=== PATIENT | male | born 1980 | race Caucasian/White ===

== ENCOUNTER 2017-09-20 20:37 | Emergency (ER) | payer BC, OTHER ==
[2017-09-20] MEDS ORDERED: Sodium Chloride 0.9% 10 ML Syringe FLUSH PRN (21:06)
[2017-09-20] MEDS ORDERED: Hyoscyamine 0.125 MG Tab.SL SL ONE (21:31)
[2017-09-20] MEDS ORDERED: Ketorolac 30 MG/ML SDV IVPUSH SCH (21:45)
--- NOTE | 2017-09-20 22:45 | EDM.PDOC ---
<Weston Hoang Jose Luis - Last Filed: 09/20/17 22:48> ED HPI GENERAL MEDICAL PROBLEM - General Chief Complaint: Abdominal Pain Stated Complaint: RIB PAIN Time Seen by Provider: 09/20/17 21:05 Source of Information: Reports: Patient, RN Notes Reviewed - History of Present Illness INITIAL COMMENTS - FREE TEXT/NARRATIVE: 36 year old male with intermitent abd pain for the past 5 days, worse the last 2 to 3 days, RUQ, pain had been relatively constant but worse today after grilled hamburger at work, I believe at the [employer] [place]. Hx of esophageal stricture, dilated about 2 yrs ago. Since than has a lot of heart burn, acid reflux but this pain is RUQ, radiates to his back, totally different. No nausea, vomiting or diarrhea. No chest pain or difficulty breathing. Treatments [employer]: Reports: Other (see below) Other Treatments [employer]: pepcid and protonix Right Abdomen Pain Score (Numeric/FACES): 10 - Related Data Allergies Allergy/AdvReac Type Severity Reaction Status Date / Time No Known Allergies Allergy Verified 09/20/17 20:49 Home Meds: Home Meds Pantoprazole Sodium [Protonix] 40 mg PO DAILY 09/20/17 [History] Acetaminophen/oxyCODONE [Percocet 325-5 MG] 1 each PO Q6H PRN #15 tab 09/21/17 [ Rx] Ondansetron HCl [Zofran] 4 mg PO Q8H PRN #12 ml 09/21/17 [Rx] Past Medical History Gastrointestinal History: Reports: Other (See Below) Other Gastrointestinal History: dilitation of esphagus - Past Surgical History HEENT Surgical History: Reports: Adenoidectomy, Tonsillectomy Social & Family History - Tobacco Use Smoking Status *Q: Never Smoker - Caffeine Use Caffeine Use: Reports: Soda - Recreational Drug Use Recreational Drug Use: No ED ROS GENERAL - Review of Systems Review Of Systems: See Below Constitutional: Denies: Fever, Chills, Diaphoresis HEENT: Reports: No Symptoms Respiratory: Denies: Shortness of Breath, Pleuritic Chest Pain Cardiovascular: Denies: Chest Pain GI/Abdominal: Reports: Abdominal Pain (RUQ), Decreased Appetite. Denies: Diarrhea, Nausea, Vomiting Musculoskeletal: Reports: Back Pain Skin: Reports: No Symptoms Neurological: Reports: No Symptoms ED EXAM, GI/ABD - Physical Exam Exam: See Below General Appearance: Alert, Moderate Distress Throat/Mouth: Normal Inspection, Normal Oropharynx Head: No: Facial Swelling Neck: Supple, Full Range of Motion Respiratory/Chest: No Respiratory Distress, Lungs Clear, Normal Breath Sounds Cardiovascular: Regular Rate, Rhythm GI/Abdominal Exam: Soft, Tender (RUQ, Pos Lambert's sign, remainder of abd nontender). No: Guarding, Rebound Back Exam: No: CVA Tenderness (L), CVA Tenderness (R) Extremities: Normal Inspection, Normal Range of Motion Neurological: Alert, No Motor/Sensory Deficits Skin Exam: Warm, Dry, Normal Color, No Rash Course - Vital Signs Last Recorded V/S: Last Vital Signs Temp 98.6 F 09/20/17 20:48 Pulse 70 09/20/17 20:48 Resp 20 09/20/17 20:48 BP 156/96 H 09/20/17 20:48 Pulse Ox 98 09/20/17 20:48 - Orders/Labs/Meds Orders: Active Orders 24 hr Category Date Time Status Peripheral IV Care [RC] . DIRECTED Care 09/20/17 21:07 Active Abdomen Ltd [US] Stat Exams 09/20/17 22:39 Taken Ketorolac [Toradol] Med 09/20/17 21:45 Active 30 mg IVPUSH ONETIME Sodium Chloride 0.9% [Saline Flush] Med 09/20/17 21:06 Active 10 ml FLUSH ASDIRECTED PRN Peripheral IV Insertion Adult [OM.PC] Stat Oth 09/20/17 21:07 Ordered Medication Orders Ketorolac Tromethamine (Toradol) 30 mg IVPUSH ONETIME [facility] Last Admin: 09/20/17 21:37 Dose: 30 mg Sodium Chloride (Saline Flush) 10 ml FLUSH ASDIRECTED PRN PRN Reason: Keep Vein Open Last Admin: 09/20/17 21:37 Dose: 10 ml Labs: Laboratory Tests 09/20/17 09/20/17 09/20/17 Range/Units 21:00 21:00 21:00 WBC 11.11 H (4.23-9.07) K/mm3 RBC 5.28 (4.63-6.08) M/mm3 Hgb 16.0 (13.7-17.5) gm/L Hct 46.8 (40.1-51.0) % MCV 88.6 (79.0-92.2) fl MCH 30.3 (25.7-32.2) pg MCHC 34.2 (32.2-35.5) g/dl RDW Std Deviation 42.8 (35.1-43.9) fL Plt Count 210 (163-337) K/mm3 MPV 10.5 (9.4-12.3) fl Neut % (Auto) 77.2 H (34.0-67.9) % Lymph % (Auto) 9.7 L (21.8-53.1) % Ocean % (Auto) 9.7 (5.3-12.2) % Eos % (Auto) 2.8 (0.8-7.0) Baso % (Auto) 0.4 (0.1-1.2) % Neut # (Auto) 8.58 H (1.78-5.38) K/mm3 Lymph # (Auto) 1.08 L (1.32-3.57) K/mm3 Ocean # (Auto) 1.08 H (0.30-0.82) K/mm3 Eos # (Auto) 0.31 (0.04-0.54) K/mm3 Baso # (Auto) 0.04 (0.01-0.08) K/mm3 Manual Slide Review Normal smear Sodium 142 (136-145) mEq/L Potassium 3.6 (3.5-5.1) mEq/L Chloride 103 (98-107) mEq/L Carbon Dioxide 29 (21-32) mEq/L Anion Gap 13.6 (5-15) BUN 8 (7-18) mg/dL Creatinine 1.4 H (0.7-1.3) mg/dL Est Cr Clr Drug Dosing 68.20 mL/min Estimated GFR (MDRD) 57 (>60) mL/min BUN/Creatinine Ratio 5.7 L (14-18) Glucose 149 H (74-106) mg/dL Calcium 9.0 (8.5-10.1) mg/dL Total Bilirubin 1.7 H (0.2-1.0) mg/dL GGT 152 H (15-85) U/L AST 28 (15-37) U/L ALT 66 H (16-63) U/L Alkaline Phosphatase 78 (46-116) U/L Total Protein 7.8 (6.4-8.2) g/dl Albumin 3.9 (3.4-5.0) g/dl Globulin 3.9 gm/dL Albumin/Globulin Ratio 1.0 (1-2) Lipase 125 (73-393) U/L Meds: Medications Generic Name Dose Route Start Last Admin Trade Name Freq PRN Reason Stop Dose Admin Ketorolac Tromethamine 30 mg 09/20/17 21:45 09/20/17 21:37 Toradol IVPUSH 30 mg ONETIME ERA Administration Sodium Chloride 10 ml 09/20/17 21:06 09/20/17 21:37 Saline Flush FLUSH 10 ml ASDIRECTED PRN Administration Keep Vein Open Discontinued Medications Generic Name Dose Route Start Last Admin Trade Name Freq PRN Reason Stop Dose Admin Hydromorphone HCl 0.5 mg 09/20/17 22:46 09/20/17 22:53 Dilaudid IVPUSH 09/20/17 22:47 0.5 mg ONETIME ONE Administration Hydromorphone HCl 0.5 mg 09/21/17 00:11 09/21/17 00:17 Dilaudid IVPUSH 09/21/17 00:12 0.5 mg ONETIME ONE Administration Hyoscyamine 0.125 mg 09/20/17 21:31 09/20/17 21:37 Hyomax-Sl SL 09/20/17 21:32 0.125 mg ONETIME ONE Administration - Re-Assessments/Exams Free Text/Narrative Re-Assessment/Exam: 09/20/17 22:54 WBC, ALT, bili, GGT all mildly elevated. Will get abd US. He was in significant pain on arrival to ED and at time of my exam, very mild relief of pain with Levsin SQ, torodol IV. Still rating the pain at an "8". Will give dilaudid 0.5 mg IV. Will keep NPO for now. End of shift. Will transfer care to Dr Power. Departure - Departure Disposition: Home, Self-Care 01 Clinical Impression: Cholelithiasis without cholecystitis, Right upper quadrant pain Cholelithiasis Qualifiers: Cholelithiasis location: gallbladder Cholecystitis presence: without cholecystitis Biliary obstruction: without biliary obstruction Qualified Code(s) : K80.20 - Calculus of gallbladder without cholecystitis without obstruction - Discharge Information Prescriptions: Acetaminophen/oxyCODONE [Percocet 325-5 MG] 1 each PO Q6H PRN #15 tab PRN Reason: Pain Ondansetron HCl [Zofran] 4 mg PO Q8H PRN #12 ml PRN Reason: Nausea Instructions: Cholelithiasis Referrals: Markus Hill MD [Physician] - Forms: ED Department Discharge, ED Return to Work/School Form Additional Instructions: Need to avoid all oily, greasy or fried foods, stay on liquids only for the next 24 hours, take the medicine for pain and nausea as needed, if the pain becomes unbearable you just have to return to the ER over the weekend, follow up with Dr. Mosley on Friday by calling his office and hopefully being seen that day, return to the ER if needed <Dustin Power - Last Filed: 09/21/17 00:51> Course - Re-Assessments/Exams Free Text/Narrative Re-Assessment/Exam: 09/20/17 23:09 I took over the care for Dr. Ge of this patient. I agree with his physical exam and assessment, lab work and testing. We are waiting for the ultrasound to be done and will provide medication for his pain relief. 09/21/17 00:46 I spoke with the patient indicating that the ultrasound was positive for sludge and gallstones and that he is going to need to get his gallbladder taken out. I did speak to the surgeon that was sanitation worker cleaning equipment and she felt that he didn't need to have the gallbladder out immediately since he was afebrile and his white count was not markedly elevated and they did not see any intrahepatic bile duct dilatation or cholecystitis picture. I will refer him to Dr. Mosley for evaluation and treatment of his gallbladder. Departure - Departure Time of Disposition: 00:47 Condition: Fair
[2017-09-20] MEDS ORDERED: HYDROmorphone 0.5 MG/0.5 ML SYRINGE IVPUSH ONE (22:46)
[2017-09-21] MEDS ORDERED: HYDROmorphone 0.5 MG/0.5 ML SYRINGE IVPUSH ONE (00:11)
--- NOTE | 2017-09-22 07:59 | US ---
Limited abdominal ultrasound: Multiple real-time images of the upper right abdomen were obtained. Comparison: No prior abdominal study. Findings: Visualized portions of the pancreas appear within normal limits. Gallbladder is filled with sludge as well as several shadowing gallstones. Gallbladder wall shows slight wall thickening. No pericholecystic fluid is seen. Common bile duct measures within normal limits. Echogenic liver is seen which is likely due to fatty infiltration. Hypoechoic area is noted near the junction of the right and left lobes which is felt compatible with focal fatty sparing. 2.7 cm liver cyst is identified next to the gallbladder. Portal vein shows normal hepatopedal flow. Right kidney shows no hydronephrosis or mass and has a length of 9.9 cm. Impression: 1. Gallbladder filled with sludge as well as containing several gallstones. 2. Fatty infiltration within the liver with area of focal fatty sparing. 3. Incidental liver cyst. Diagnostic code #3 I agree with preliminary report from [facility], finalized at 09/21/17, 1:20 AM Central Time
== END 2017-09-21 01:01 | disposition home or self-care (01) ==
LOC: JD.ED 20:37 → SUPCPDRO 20:37 → JD.ED 09-21 01:01
DX: K80.20 Calculus of gallbladder without cholecystitis without obstruction (principal); Z98.890 Other specified postprocedural states; Z79.899 Other long term (current) drug therapy
CPT/HCPCS: 36415; 76705; 80053; 82977; 83690; 85025; 96374; 96375; 96376; 99284; A9270; J1170; J1885; J7050

== ENCOUNTER 2017-09-26 10:03 | Inpatient (IN) | payer OTHER ==
[~2017-09-26 10:03] MED LIST: Bupivacaine 0.5% 30 ML SDV ONE; Dexamethasone 4 MG/ML SDV ONE; HYDROmorphone 1 MG/ML Syringe ONE; Iopamidol 612 MG/ML 50 ML SDV ONE; Ketorolac 30 MG/ML SDV ONE; Lactated Ringers 1,000 ML ONE; Lidocaine 1% 4 ML ONE; Midazolam 1 MG/ML 2 ML SDV ONE; Ondansetron 4 MG/2 ML SDV ONE; Propofol 200 MG/20 ML SDV ONE; Rocuronium 50 MG/5 ML Vial ONE; Sodium Chloride 0.9% 50 ML SDV ONE; ceFAZolin 1 GM Vial ONE; fentaNYL 250 MCG/5 ML SDV ONE
--- NOTE | 2017-09-26 10:23 | PCM.PREANE ---
Preanesthetic Assessment - Anesthesia/Transfusion/Family Hx Anesthesia History: Prior Anesthesia Without Reaction Family History of Anesthesia Reaction: No Transfusion History: No Prior Transfusion(s) Intubation History: Unknown - Review of Systems General: No Symptoms Pulmonary: No Symptoms (quit smoking: history of 1/4 pack times 0.5 years/quit smoking 15 years ago./ETOH: 2-4 drinks/week) Cardiovascular: No Symptoms Gastrointestinal: No Symptoms (GERD/esophageal stricture noted in the past.) Neurological: No Symptoms Other: Reports: None - Physical Assessment NPO Status Date: 09/25/17 NPO Status Time: 22:00 Pulse: 84 O2 Sat by Pulse Oximetry: 96 Respiratory Rate: 20 Blood Pressure: 134/94 Temperature: 36.4 C Height: 1.7 m Weight: 73 kg ASA Class: 1 Mental Status: Alert & Oriented x3 Airway Class: Mallampati = 2 Dentition: Reports: Normal Dentition, Caries Thyro-Mental Finger Breadths: 3 Mouth Opening Finger Breadths: 3 ROM/Head Extension: Full Lungs: Clear to Auscultation, Normal Respiratory Effort Cardiovascular: Regular Rate, Regular Rhythm, No Murmurs - Allergies Allergies/Adverse Reactions: Allergies Allergy/AdvReac Type Severity Reaction Status Date / Time No Known Allergies Allergy Verified 09/20/17 20:49 - Anesthesia Plan Pre-Op Medication Ordered: None - Acknowledgements Anesthesia Type Planned: General Anesthesia Pt an Appropriate Candidate for the Planned Anesthesia: Yes Alternatives and Risks of Anesthesia Discussed w Pt/Guardian: Yes Pt/Guardian Understands and Agrees with Anesthesia Plan: Yes PreAnesthesia Questionnaire Gastrointestinal History: Reports: Other (See Below) Other Gastrointestinal History: dilitation of esphagus - Past Surgical History HEENT Surgical History: Reports: Adenoidectomy, Tonsillectomy - SUBSTANCE USE Smoking Status *Q: Never Smoker Recreational Drug Use History: No - HOME MEDS Home Medications: Home Meds Pantoprazole Sodium [Protonix] 40 mg PO DAILY 09/20/17 [History] Acetaminophen/oxyCODONE [Percocet 325-5 MG] 1 each PO Q6H PRN #15 tab 09/21/17 [ Rx] Ondansetron HCl [Zofran] 4 mg PO Q8H PRN #12 ml 09/21/17 [Rx] - CURRENT (IN HOUSE) MEDS Current Meds: Current Medications Discontinued Medications Bupivacaine HCl (Marcaine 0.5%) Confirm Administered Dose 30 ml .ROUTE .[facility]-MED ONE Stop: 09/26/17 10:02 Cefazolin Sodium (Ancef) Confirm Administered Dose 2 gm .ROUTE .[facility]-MED ONE Stop: 09/26/17 07:12 Dexamethasone (Dexamethasone) Confirm Administered Dose 8 mg .ROUTE .ST-MED ONE Stop: 09/26/17 07:12 Fentanyl (Sublimaze) Confirm Administered Dose 250 mcg .ROUTE .ST-MED ONE Stop: 09/26/17 07:14 Hydromorphone HCl (Dilaudid) Confirm Administered Dose 1 mg .ROUTE .[facility]-MED ONE Stop: 09/26/17 07:12 Lidocaine HCl (Xylocaine-Mpf 1%) Confirm Administered Dose 4 mls @ as directed .ROUTE .[facility]-MED ONE Stop: 09/26/17 07:12 Lactated Ringer's (Ringers, Lactated) Confirm Administered Dose 1,000 mls @ as directed .ROUTE .[facility] ONE Stop: 09/26/17 07:12 Iopamidol (Isovue-300 (61%)) Confirm Administered Dose 50 ml .ROUTE .[facility]-MED ONE Stop: 09/26/17 10:01 Ketorolac Tromethamine (Toradol) Confirm Administered Dose 30 mg .ROUTE .[facility]- MED ONE Stop: 09/26/17 07:12 Midazolam HCl (Versed 1 Mg/Ml) Confirm Administered Dose 2 mg .ROUTE .ST-MED ONE Stop: 09/26/17 07:13 Ondansetron HCl (Zofran) Confirm Administered Dose 4 mg .ROUTE .ST-MED ONE Stop: 09/26/17 07:12 Propofol (Diprivan 20 Ml) Confirm Administered Dose 200 mg .ROUTE .[facility]-MED ONE Stop: 09/26/17 07:13 Rocuronium [place] (Zemuron) Confirm Administered Dose 50 mg .ROUTE .ST-MED ONE Stop: 09/26/17 07:12 Sodium Chloride (Normal Saline) Confirm Administered Dose 50 ml .ROUTE .[facility]-MED ONE Stop: 09/26/17 10:02
[2017-09-26] MEDS ORDERED: Meperidine PF 50 MG/ML Syringe IVPUSH PRN (11:02)
[2017-09-26] MEDS ORDERED: fentaNYL 100 MCG/2 ML SDV IVPUSH PRN (11:02)
[2017-09-26] MEDS ORDERED: Ondansetron 4 MG/2 ML SDV IVPUSH PRN ×2 (11:02→12:41)
[2017-09-26] MEDS ORDERED: ePHEDrine 50 MG/ML SDV IVPUSH PRN (11:02)
[2017-09-26] MEDS ORDERED: diphenhydrAMINE 50 MG/ML SDV IVPUSH PRN (11:02)
[2017-09-26] MEDS ORDERED: HYDROmorphone 1 MG/ML Syringe ONE (11:06)
[2017-09-26] MEDS ORDERED: Phenylephrine 1 MG in Sodium Chloride 0.9% 10 ML IV SCH (11:15)
[2017-09-26] MEDS ORDERED: fentaNYL 100 MCG/2 ML SDV ONE (11:26)
[2017-09-26] MEDS ORDERED: Sodium Chloride 0.9% 10 ML Syringe FLUSH PRN (11:31)
[2017-09-26] MEDS ORDERED: Lidocaine 1%/Sod Bicarbonate in NS 8.4% 1 ML Syringe IDERM PRN (11:31)
[2017-09-26] MEDS ORDERED: Lactated Ringers 1,000 ML IV SCH (11:45)
--- NOTE | 2017-09-26 12:39 | PCM.OPNOTE ---
- General Post-Op/Procedure Note Date of Surgery/Procedure: 09/26/17 Operative Procedure(s): laproscopy open cholecystectomy Findings: cholelithiasis. acute cholecystitis Pre Op Diagnosis: cholelithiasis/acute cholecystitis Post-Op Diagnosis: Same Anesthesia Technique: General ET Tube Primary Surgeon: Markus Hill EBL in mLs: 100 Complications: None Condition: Good
--- NOTE | 2017-09-26 12:46 | PCM.POSTAN ---
POST ANESTHESIA ASSESSMENT - MENTAL STATUS Mental Status: Alert - VITAL SIGNS Pulse Rate: 78 SaO2: 96 Resp Rate: 16 Blood Pressure: 159/90 Temperature: 37.4 C - RESPIRATORY Respiratory Status: Respiratory Rate WNL, Airway Patent, O2 Saturation Stable, Supplemental Oxygen - CARDIOVASCULAR CV Status: Pulse Rate WNL, Blood Pressure Stable - GASTROINTESTINAL GI Status: No Symptoms - POST OP HYDRATION Hydration Status: Adequate & Stable
[2017-09-26] MEDS ORDERED: HYDROmorphone 0.5 MG/0.5 ML Syringe ONE ×2 (12:54→13:17)
[2017-09-26] MEDS ORDERED: HYDROmorphone 0.5 MG/0.5 ML Syringe IVPUSH ONE (13:01)
[2017-09-26] MEDS ORDERED: HYDROmorphone 0.5 MG/0.5 ML Syringe IVPUSH PRN (13:15)
[2017-09-26] MEDS: Ampicillin/Sulbactam Na 3 GM in Sodium Chloride 0.9% 100 ML IV SCH ×2 (14:33→20:19)
[2017-09-26] MEDS: Ketorolac 30 MG/ML SDV IVPUSH PRN ×2 (15:50→22:36)
[2017-09-26] MEDS: Lactated Ringers 1,000 ML IV SCH (15:53)
[2017-09-26] MEDS: HYDROmorphone 0.5 MG/0.5 ML SYRINGE IVPUSH PRN ×2 (20:12→22:46)
[2017-09-27] MEDS: Lactated Ringers 1,000 ML IV SCH ×2 (01:16→11:55)
[2017-09-27] MEDS: Ampicillin/Sulbactam Na 3 GM in Sodium Chloride 0.9% 100 ML IV SCH ×4 (02:08→19:48)
[2017-09-27] MEDS: HYDROmorphone 0.5 MG/0.5 ML SYRINGE IVPUSH PRN (03:43)
[2017-09-27] MEDS: Ketorolac 30 MG/ML SDV IVPUSH PRN ×3 (04:41→18:18)
--- NOTE | 2017-09-27 11:58 | PCM.SURGPN ---
- General Info Date of Service: 09/27/17 POD#: 1 Functional Status: Reports: Pain Controlled - Review of Systems General: Reports: No Symptoms Pulmonary: Reports: No Symptoms Cardiovascular: Reports: No Symptoms Gastrointestinal: Reports: No Symptoms - Patient Data Vitals - Most Recent: Last Vital Signs Temp 98.8 F 09/27/17 08:06 Pulse 68 09/27/17 08:06 Resp 18 09/27/17 08:06 BP 122/73 09/27/17 08:06 Pulse Ox 96 09/27/17 08:06 Weight - Most Recent: 76.612 kg I&O - Last 24 Hours: Intake & Output 09/26/17 09/27/17 09/27/17 23:59 07:59 15:59 Intake Total 871 1800 1645 Output Total 750 Balance 871 1050 1645 Med Orders - Current: Current Medications Hydromorphone HCl (Dilaudid) 1 mg IVPUSH Q1H PRN PRN Reason: Pain Last Admin: 09/27/17 03:43 Dose: 1 mg Ampicillin Sodium/Sulbactam (Sodium 3 gm/ Sodium Chloride) 100 mls @ 200 mls/ hr IV Q6H [facility] Last Admin: 09/27/17 07:59 Dose: 200 mls/hr Lactated Ringer's (Ringers, Lactated) 1,000 mls @ 70 mls/hr IV ASDIRECTED [facility] Last Admin: 09/27/17 11:55 Dose: 70 mls/hr Ketorolac Tromethamine (Toradol) 30 mg IVPUSH Q6H PRN PRN Reason: Pain Last Admin: 09/27/17 10:29 Dose: 30 mg Ondansetron HCl (Zofran) 4 mg IVPUSH Q8H PRN PRN Reason: Nausea Oxycodone/Acetaminophen (Percocet 325-5 Mg) 1 tab PO Q6H PRN PRN Reason: Pain Discontinued Medications Bupivacaine HCl (Marcaine 0.5%) Confirm Administered Dose 30 ml .ROUTE .STK-MED ONE Stop: 09/26/17 10:02 Last Admin: 09/26/17 10:57 Dose: 8 ml Cefazolin Sodium (Ancef) Confirm Administered Dose 2 gm .ROUTE .STK-MED ONE Stop: 09/26/17 07:12 Dexamethasone (Dexamethasone) Confirm Administered Dose 8 mg .ROUTE .STK-MED ONE Stop: 09/26/17 07:12 Diphenhydramine HCl (Benadryl) 25 mg IVPUSH Q6H PRN PRN Reason: pruritis Stop: 09/26/17 16:00 Ephedrine Sulfate (Ephedrine Sulfate) 5 mg IVPUSH ASDIRECTED PRN PRN Reason: Hypotension Stop: 09/26/17 16:00 Fentanyl (Sublimaze) Confirm Administered Dose 250 mcg .ROUTE .STK-MED ONE Stop: 09/26/17 07:14 Fentanyl (Sublimaze) 50 mcg IVPUSH Q5M PRN PRN Reason: Pain Stop: 09/26/17 11:03 Fentanyl (Sublimaze) Confirm Administered Dose 100 mcg .ROUTE .STK-MED ONE Stop: 09/26/17 11:27 Hydromorphone HCl (Dilaudid) Confirm Administered Dose 1 mg .ROUTE .STK-MED ONE Stop: 09/26/17 07:12 Hydromorphone HCl (Dilaudid) Confirm Administered Dose 1 mg .ROUTE .STK-MED ONE Stop: 09/26/17 11:07 Hydromorphone HCl (Dilaudid) 1 mg IVPUSH ONETIME ONE Stop: 09/26/17 13:02 Last Admin: 09/26/17 14:57 Dose: Not Given Hydromorphone HCl (Dilaudid) Confirm Administered Dose 0.5 mg .ROUTE .STK-MED ONE Stop: 09/26/17 12:55 Last Admin: 09/26/17 13:00 Dose: 0.5 mg Hydromorphone HCl (Dilaudid) Confirm Administered Dose 0.5 mg .ROUTE .STK-MED ONE Stop: 09/26/17 13:18 Last Admin: 09/26/17 14:57 Dose: Not Given Hydromorphone HCl (Dilaudid) 0.5 mg IVPUSH ONETIME PRN PRN Reason: Pain (severe 7-10) Stop: 09/26/17 15:00 Last Admin: 09/26/17 13:30 Dose: 0.5 mg Lidocaine HCl (Xylocaine-Mpf 1%) Confirm Administered Dose 4 mls @ as directed .ROUTE .STK-MED ONE Stop: 09/26/17 07:12 Lactated Ringer's (Ringers, Lactated) Confirm Administered Dose 1,000 mls @ as directed .ROUTE .STK-MED ONE Stop: 09/26/17 07:12 Phenylephrine HCl 1 mg/ Sodium (Chloride) 10.1 mls @ 1 mls/sec IV TITRATE ERA PRN Reason: Protocol Stop: 09/26/17 16:00 Lactated Ringer's (Ringers, Lactated) 1,000 mls @ 125 mls/hr IV ASDIRECTED [facility] Stop: 09/26/17 23:00 Last Admin: 09/26/17 10:25 Dose: 125 mls/hr Lactated Ringer's (Ringers, Lactated) 1,000 mls @ 125 mls/hr IV ASDIRECTED [facility] Last Admin: 09/27/17 01:16 Dose: 125 mls/hr Iopamidol (Isovue-300 (61%)) Confirm Administered Dose 50 ml .ROUTE .STK-MED ONE Stop: 09/26/17 10:01 Ketorolac Tromethamine (Toradol) Confirm Administered Dose 30 mg .ROUTE .STK- MED ONE Stop: 09/26/17 07:12 Lidocaine/Sodium Bicarbonate (Buffered Lidocaine 1% In Ns 8.4%) 0.25 ml IDERM ONETIME PRN PRN Reason: Prior to IV Start Stop: 09/26/17 18:00 Last Admin: 09/26/17 10:24 Dose: 0.25 ml Meperidine HCl (Demerol) 12.5 mg IVPUSH ONETIME PRN PRN Reason: shivering Stop: 09/26/17 16:00 Midazolam HCl (Versed 1 Mg/Ml) Confirm Administered Dose 2 mg .ROUTE .STK-MED ONE Stop: 09/26/17 07:13 Ondansetron HCl (Zofran) Confirm Administered Dose 4 mg .ROUTE .STK-MED ONE Stop: 09/26/17 07:12 Ondansetron HCl (Zofran) 4 mg IVPUSH ONETIME PRN PRN Reason: Nausea/Vomiting Stop: 09/26/17 16:00 Propofol (Diprivan 20 Ml) Confirm Administered Dose 200 mg .ROUTE .STK-MED ONE Stop: 09/26/17 07:13 Rocuronium [place] (Zemuron) Confirm Administered Dose 50 mg .ROUTE .STK-MED ONE Stop: 09/26/17 07:12 Sodium Chloride (Normal Saline) Confirm Administered Dose 50 ml .ROUTE .STK-MED ONE Stop: 09/26/17 10:02 Sodium Chloride (Saline Flush) 10 ml FLUSH ASDIRECTED PRN PRN Reason: Keep Vein Open Stop: 09/26/17 18:00 - Exam Wound/Incisions: Healing Well Lungs: Clear to Auscultation, Normal Respiratory Effort Cardiovascular: Regular Rate, Regular Rhythm GI/Abdominal Exam: Normal Bowel Sounds, Soft, Non-Tender, No Organomegaly, No Distention, No Abnormal Bruit, No Mass, Pelvis Stable - Problem List Review Problem List Initiated/Reviewed/Updated: Yes - My Orders Last 24 Hours: Active Orders 24 hr Category Date Time Status Ambulate [RC] ASDIRECTED Care 09/26/17 12:39 Active Antiembolic Devices [RC] QSHIFT Care 09/26/17 12:41 Active Communication Order [RC] ASDIRECTED Care 09/27/17 11:47 Active Cooling Warming Measures [RC] ASDIRECTED Care 09/26/17 11:01 Active Incentive Spirometry [RT Incentive Spirometry] [RC] Care 09/26/17 12:40 Active ASDIRECTED Notify Provider [RC] ASDIRECTED Care 09/26/17 11:01 Active Oxygen Therapy [RC] ASDIRECTED Care 09/26/17 11:01 Active Pulse Oximetry [RC] ASDIRECTED Care 09/26/17 11:01 Active Turn, Cough, Deep Breathe [RC] .PRN Care 09/26/17 12:40 Active Clear Liquid Diet [DIET] Diet 09/26/17 Dinner Active CBC WITH AUTO DIFF [HEME] Routine Lab 09/28/17 07:00 Ordered COMPREHENSIVE METABOLIC PN,CMP [CHEM] Routine Lab 09/28/17 07:00 Ordered Acetaminophen/oxyCODONE [Percocet 325-5 MG] Med 09/27/17 11:38 Active 1 tab PO Q6H PRN Ampicillin/Sulbactam Na [Unasyn] 3 gm Med 09/26/17 14:00 Active Sodium Chloride 0.9% [Normal Saline] 100 ml IV Q6H HYDROmorphone [Dilaudid] Med 09/26/17 12:42 Active 1 mg IVPUSH Q1H PRN Ketorolac [Toradol] Med 09/26/17 12:42 Active 30 mg IVPUSH Q6H PRN Lactated Ringers [Ringers, Lactated] 1,000 ml Med 09/27/17 11:45 Active IV ASDIRECTED Ondansetron [Zofran] Med 09/26/17 12:41 Active 4 mg IVPUSH Q8H PRN Peripheral IV Insertion Adult [OM.PC] Routine Oth 09/26/17 11:31 Ordered SCD [Sequential Compression Device] [OM.PC] Routine Oth 09/26/17 12:41 Ordered Resuscitation Status Routine Resus Stat 09/26/17 16:57 Ordered Medication Orders Hydromorphone HCl (Dilaudid) 1 mg IVPUSH Q1H PRN PRN Reason: Pain Last Admin: 09/27/17 03:43 Dose: 1 mg Admin: 09/26/17 22:46 Dose: 1 mg Admin: 09/26/17 20:12 Dose: 1 mg Ampicillin Sodium/Sulbactam (Sodium 3 gm/ Sodium Chloride) 100 mls @ 200 mls/ hr IV Q6H [facility] Last Admin: 09/27/17 07:59 Dose: 200 mls/hr Infusion: 09/27/17 02:38 Dose: 200 mls/hr Admin: 09/27/17 02:08 Dose: 200 mls/hr Infusion: 09/26/17 20:49 Dose: 200 mls/hr Admin: 09/26/17 20:19 Dose: 200 mls/hr Infusion: 09/26/17 15:03 Dose: 200 mls/hr Admin: 09/26/17 14:33 Dose: 200 mls/hr Lactated Ringer's (Ringers, Lactated) 1,000 mls @ 70 mls/hr IV ASDIRECTED [facility] Last Admin: 09/27/17 11:55 Dose: 70 mls/hr Ketorolac Tromethamine (Toradol) 30 mg IVPUSH Q6H PRN PRN Reason: Pain Last Admin: 09/27/17 10:29 Dose: 30 mg Admin: 09/27/17 04:41 Dose: 30 mg Admin: 09/26/17 22:36 Dose: 30 mg Admin: 09/26/17 15:50 Dose: 30 mg Ondansetron HCl (Zofran) 4 mg IVPUSH Q8H PRN PRN Reason: Nausea Oxycodone/Acetaminophen (Percocet 325-5 Mg) 1 tab PO Q6H PRN PRN Reason: Pain - Plan Plan (Free Text/Narrative):: doing well continue with present teatment pt is tlerating diet and have flatus JMB
[2017-09-27] MEDS ORDERED: Aluminum Hydroxide/Magnesium Hydroxide/Simethicone Susp 30 ML Cup PO PRN (12:55)
[2017-09-27] MEDS: Acetaminophen/oxyCODONE 325-5 MG Tab PO PRN ×2 (13:18→21:38)
[2017-09-28] MEDS: Ampicillin/Sulbactam Na 3 GM in Sodium Chloride 0.9% 100 ML IV SCH ×4 (02:23→20:35)
[2017-09-28] MEDS: Ketorolac 30 MG/ML SDV IVPUSH PRN ×3 (02:27→23:17)
[2017-09-28] MEDS: Lactated Ringers 1,000 ML IV SCH (03:03)
[2017-09-28] MEDS: Acetaminophen/oxyCODONE 325-5 MG Tab PO PRN ×2 (08:32→20:35)
[2017-09-28] MEDS ORDERED: Sodium Chloride 0.9% 10 ML Syringe FLUSH PRN (12:50)
--- NOTE | 2017-09-28 12:52 | PCM.SURGPN ---
- General Info Date of Service: 09/28/17 POD#: 2 Functional Status: Reports: Pain Controlled - Review of Systems General: Reports: No Symptoms Pulmonary: Reports: No Symptoms Cardiovascular: Reports: No Symptoms Gastrointestinal: Reports: No Symptoms - Patient Data Vitals - Most Recent: Last Vital Signs Temp 98.8 F 09/28/17 07:54 Pulse 76 09/28/17 07:54 Resp 16 09/28/17 07:54 BP 125/78 09/28/17 07:54 Pulse Ox 95 09/28/17 07:54 Weight - Most Recent: 77.61 kg I&O - Last 24 Hours: Intake & Output 09/27/17 09/28/17 09/28/17 23:59 07:59 15:59 Intake Total 1871 1713 Output Total 1985 950 Balance -114 763 Lab Results Last 24 Hrs: Laboratory Results - last 24 hr 09/28/17 09/28/17 Range/Units 05:05 05:05 WBC 5.67 (4.23-9.07) K/mm3 RBC 4.03 L (4.63-6.08) M/mm3 Hgb 12.1 L (13.7-17.5) gm/L Hct 36.2 L (40.1-51.0) % MCV 89.8 (79.0-92.2) fl MCH 30.0 (25.7-32.2) pg MCHC 33.4 (32.2-35.5) g/dl RDW Std Deviation 41.8 (35.1-43.9) fL Plt Count 277 (163-337) K/mm3 MPV 9.8 (9.4-12.3) fl Neut % (Auto) 61.0 (34.0-67.9) % Lymph % (Auto) 23.1 (21.8-53.1) % [place] % (Auto) 9.2 (5.3-12.2) % Eos % (Auto) 5.3 (0.8-7.0) Baso % (Auto) 0.5 (0.1-1.2) % Neut # (Auto) 3.46 (1.78-5.38) K/mm3 Lymph # (Auto) 1.31 L (1.32-3.57) K/mm3 [place] # (Auto) 0.52 (0.30-0.82) K/mm3 Eos # (Auto) 0.30 (0.04-0.54) K/mm3 Baso # (Auto) 0.03 (0.01-0.08) K/mm3 Sodium 142 (136-145) mEq/L Potassium 3.1 L (3.5-5.1) mEq/L Chloride 107 (98-107) mEq/L Carbon Dioxide 28 (21-32) mEq/L Anion Gap 10.1 (5-15) BUN 7 (7-18) mg/dL Creatinine 0.9 (0.7-1.3) mg/dL Est Cr Clr Drug Dosing 106.09 mL/min Estimated GFR (MDRD) > 60 (>60) mL/min BUN/Creatinine Ratio 7.8 L (14-18) Glucose 92 (74-106) mg/dL Calcium 7.7 L (8.5-10.1) mg/dL Total Bilirubin 0.6 (0.2-1.0) mg/dL AST 56 H (15-37) U/L ALT 112 H (16-63) U/L Alkaline Phosphatase 119 H (46-116) U/L Total Protein 5.5 L (6.4-8.2) g/dl Albumin 2.5 L (3.4-5.0) g/dl Globulin 3.0 gm/dL Albumin/Globulin Ratio 0.8 L (1-2) Med Orders - Current: Current Medications Al Hydroxide/Mg Hydroxide (Mag-Al Plus) 30 ml PO Q4H PRN PRN Reason: Heartburn Last Admin: 09/27/17 13:01 Dose: 30 ml Hydromorphone HCl (Dilaudid) 1 mg IVPUSH Q1H PRN PRN Reason: Pain Last Admin: 09/27/17 03:43 Dose: 1 mg Ampicillin Sodium/Sulbactam (Sodium 3 gm/ Sodium Chloride) 100 mls @ 200 mls/ hr IV Q6H ERA Last Admin: 09/28/17 08:32 Dose: 200 mls/hr Lactated Ringer's (Ringers, Lactated) 1,000 mls @ 70 mls/hr IV ASDIRECTED ERA Last Admin: 09/28/17 03:03 Dose: 70 mls/hr Ketorolac Tromethamine (Toradol) 30 mg IVPUSH Q6H PRN PRN Reason: Pain Last Admin: 09/28/17 02:27 Dose: 30 mg Ondansetron HCl (Zofran) 4 mg IVPUSH Q8H PRN PRN Reason: Nausea Oxycodone/Acetaminophen (Percocet 325-5 Mg) 1 tab PO Q6H PRN PRN Reason: Pain Last Admin: 09/28/17 08:32 Dose: 1 tab Potassium Chloride (Klor-Con 10) 10 meq PO BID ERA Stop: 09/29/17 21:01 Sodium Chloride (Saline Flush) 10 ml FLUSH ASDIRECTED PRN PRN Reason: Keep Vein Open Discontinued Medications Bupivacaine HCl (Marcaine 0.5%) Confirm Administered Dose 30 ml .ROUTE .STK-MED ONE Stop: 09/26/17 10:02 Last Admin: 09/26/17 10:57 Dose: 8 ml Cefazolin Sodium (Ancef) Confirm Administered Dose 2 gm .ROUTE .STK-MED ONE Stop: 09/26/17 07:12 Dexamethasone (Dexamethasone) Confirm Administered Dose 8 mg .ROUTE .STK-MED ONE Stop: 09/26/17 07:12 Diphenhydramine HCl (Benadryl) 25 mg IVPUSH Q6H PRN PRN Reason: pruritis Stop: 09/26/17 16:00 Ephedrine Sulfate (Ephedrine Sulfate) 5 mg IVPUSH ASDIRECTED PRN PRN Reason: Hypotension Stop: 09/26/17 16:00 Fentanyl (Sublimaze) Confirm Administered Dose 250 mcg .ROUTE .STK-MED ONE Stop: 09/26/17 07:14 Fentanyl (Sublimaze) 50 mcg IVPUSH Q5M PRN PRN Reason: Pain Stop: 09/26/17 11:03 Fentanyl (Sublimaze) Confirm Administered Dose 100 mcg .ROUTE .STK-MED ONE Stop: 09/26/17 11:27 Hydromorphone HCl (Dilaudid) Confirm Administered Dose 1 mg .ROUTE .STK-MED ONE Stop: 09/26/17 07:12 Hydromorphone HCl (Dilaudid) Confirm Administered Dose 1 mg .ROUTE .STK-MED ONE Stop: 09/26/17 11:07 Hydromorphone HCl (Dilaudid) 1 mg IVPUSH ONETIME ONE Stop: 09/26/17 13:02 Last Admin: 09/26/17 14:57 Dose: Not Given Hydromorphone HCl (Dilaudid) Confirm Administered Dose 0.5 mg .ROUTE .STK-MED ONE Stop: 09/26/17 12:55 Last Admin: 09/26/17 13:00 Dose: 0.5 mg Hydromorphone HCl (Dilaudid) Confirm Administered Dose 0.5 mg .ROUTE .STK-MED ONE Stop: 09/26/17 13:18 Last Admin: 09/26/17 14:57 Dose: Not Given Hydromorphone HCl (Dilaudid) 0.5 mg IVPUSH ONETIME PRN PRN Reason: Pain (severe 7-10) Stop: 09/26/17 15:00 Last Admin: 09/26/17 13:30 Dose: 0.5 mg Lidocaine HCl (Xylocaine-Mpf 1%) Confirm Administered Dose 4 mls @ as directed .ROUTE .STK-MED ONE Stop: 09/26/17 07:12 Lactated Ringer's (Ringers, Lactated) Confirm Administered Dose 1,000 mls @ as directed .ROUTE .STK-MED ONE Stop: 09/26/17 07:12 Phenylephrine HCl 1 mg/ Sodium (Chloride) 10.1 mls @ 1 mls/sec IV TITRATE ERA PRN Reason: Protocol Stop: 09/26/17 16:00 Lactated Ringer's (Ringers, Lactated) 1,000 mls @ 125 mls/hr IV ASDIRECTED ERA Stop: 09/26/17 23:00 Last Admin: 09/26/17 10:25 Dose: 125 mls/hr Lactated Ringer's (Ringers, Lactated) 1,000 mls @ 125 mls/hr IV ASDIRECTED [facility] Last Admin: 09/27/17 01:16 Dose: 125 mls/hr Iopamidol (Isovue-300 (61%)) Confirm Administered Dose 50 ml .ROUTE .STK-MED ONE Stop: 09/26/17 10:01 Ketorolac Tromethamine (Toradol) Confirm Administered Dose 30 mg .ROUTE .STK- MED ONE Stop: 09/26/17 07:12 Lidocaine/Sodium Bicarbonate (Buffered Lidocaine 1% In Ns 8.4%) 0.25 ml IDERM ONETIME PRN PRN Reason: Prior to IV Start Stop: 09/26/17 18:00 Last Admin: 09/26/17 10:24 Dose: 0.25 ml Meperidine HCl (Demerol) 12.5 mg IVPUSH ONETIME PRN PRN Reason: shivering Stop: 09/26/17 16:00 Midazolam HCl (Versed 1 Mg/Ml) Confirm Administered Dose 2 mg .ROUTE .STK-MED ONE Stop: 09/26/17 07:13 Ondansetron HCl (Zofran) Confirm Administered Dose 4 mg .ROUTE .STK-MED ONE Stop: 09/26/17 07:12 Ondansetron HCl (Zofran) 4 mg IVPUSH ONETIME PRN PRN Reason: Nausea/Vomiting Stop: 09/26/17 16:00 Propofol (Diprivan 20 Ml) Confirm Administered Dose 200 mg .ROUTE .STK-MED ONE Stop: 09/26/17 07:13 Rocuronium [place] (Zemuron) Confirm Administered Dose 50 mg .ROUTE .STK-MED ONE Stop: 09/26/17 07:12 Sodium Chloride (Normal Saline) Confirm Administered Dose 50 ml .ROUTE .STK-MED ONE Stop: 09/26/17 10:02 Sodium Chloride (Saline Flush) 10 ml FLUSH ASDIRECTED PRN PRN Reason: Keep Vein Open Stop: 09/26/17 18:00 - Exam Wound/Incisions: Healing Well Lungs: Clear to Auscultation, Normal Respiratory Effort Cardiovascular: Regular Rate, Regular Rhythm GI/Abdominal Exam: Normal Bowel Sounds, Soft, Non-Tender, No Organomegaly, No Distention, No Abnormal Bruit, No Mass, Pelvis Stable - Problem List Review Problem List Initiated/Reviewed/Updated: Yes - My Orders Last 24 Hours: Active Orders 24 hr Category Date Time Status [place] Diet [DIET] Diet 09/28/17 Dinner Ordered Alum Hydrox/Mag Hydrox/Simeth [Mag-Al Plus] Med 09/27/17 12:55 Active 30 ml PO Q4H PRN Potassium Chloride [Klor-Con 10] Med 09/28/17 12:30 Active 10 meq PO BID Sodium Chloride 0.9% [Saline Flush] Med 09/28/17 12:50 Ordered 10 ml FLUSH ASDIRECTED PRN Convert IV to Saline Lock [OM.PC] Routine Oth 09/28/17 12:50 Ordered Medication Orders Al Hydroxide/Mg Hydroxide (Mag-Al Plus) 30 ml PO Q4H PRN PRN Reason: Heartburn Last Admin: 09/27/17 13:01 Dose: 30 ml Hydromorphone HCl (Dilaudid) 1 mg IVPUSH Q1H PRN PRN Reason: Pain Last Admin: 09/27/17 03:43 Dose: 1 mg Admin: 09/26/17 22:46 Dose: 1 mg Admin: 09/26/17 20:12 Dose: 1 mg Ampicillin Sodium/Sulbactam (Sodium 3 gm/ Sodium Chloride) 100 mls @ 200 mls/ hr IV Q6H [facility] Last Admin: 09/28/17 08:32 Dose: 200 mls/hr Infusion: 09/28/17 02:53 Dose: 200 mls/hr Admin: 09/28/17 02:23 Dose: 200 mls/hr Infusion: 09/27/17 20:18 Dose: 200 mls/hr Admin: 09/27/17 19:48 Dose: 200 mls/hr Infusion: 09/27/17 13:52 Dose: 200 mls/hr Admin: 09/27/17 13:22 Dose: 200 mls/hr Infusion: 09/27/17 08:29 Dose: 200 mls/hr Admin: 09/27/17 07:59 Dose: 200 mls/hr Infusion: 09/27/17 02:38 Dose: 200 mls/hr Admin: 09/27/17 02:08 Dose: 200 mls/hr Infusion: 09/26/17 20:49 Dose: 200 mls/hr Admin: 09/26/17 20:19 Dose: 200 mls/hr Infusion: 09/26/17 15:03 Dose: 200 mls/hr Admin: 09/26/17 14:33 Dose: 200 mls/hr Lactated Ringer's (Ringers, Lactated) 1,000 mls @ 70 mls/hr IV ASDIRECTED [facility] Last Admin: 09/28/17 03:03 Dose: 70 mls/hr Infusion: 09/28/17 02:13 Dose: 70 mls/hr Admin: 09/27/17 11:55 Dose: 70 mls/hr Ketorolac Tromethamine (Toradol) 30 mg IVPUSH Q6H PRN PRN Reason: Pain Last Admin: 09/28/17 02:27 Dose: 30 mg Admin: 09/27/17 18:18 Dose: 30 mg Admin: 09/27/17 10:29 Dose: 30 mg Admin: 09/27/17 04:41 Dose: 30 mg Admin: 09/26/17 22:36 Dose: 30 mg Admin: 09/26/17 15:50 Dose: 30 mg Ondansetron HCl (Zofran) 4 mg IVPUSH Q8H PRN PRN Reason: Nausea Oxycodone/Acetaminophen (Percocet 325-5 Mg) 1 tab PO Q6H PRN PRN Reason: Pain Last Admin: 09/28/17 08:32 Dose: 1 tab Admin: 09/27/17 21:38 Dose: 1 tab Admin: 09/27/17 13:18 Dose: 1 tab Potassium Chloride (Klor-Con 10) 10 meq PO BID ERA Stop: 09/29/17 21:01 Sodium Chloride (Saline Flush) 10 ml FLUSH ASDIRECTED PRN PRN Reason: Keep Vein Open - Plan Plan (Free Text/Narrative):: improving noted K is 3.1 ass hypokalemia plan give oral K , advance diet and stop IV fluid continue antibiotic s KAILEYB
[2017-09-28] MEDS: Potassium Chloride 10 MEQ Tab.ER PO SCH ×2 (13:46→20:35)
--- NOTE | 2017-09-28 15:24 | PCM48HPAN ---
Post Anesthesia Note - EVALUATION WITHIN 48HRS OF ANESTHETIC Vital Signs in Normal Range: Yes Patient Participated in Evaluation: Yes Respiratory Function Stable: Yes Airway Patent: Yes Cardiovascular Function Stable: Yes Hydration Status Stable: Yes Pain Control Satisfactory: Yes Nausea and Vomiting Control Satisfactory: Yes Mental Status Recovered: Yes Pulse Rate: 85 Resp Rate: 20 Temperature: 37.1 C Blood Pressure: 128/71
[2017-09-29] MEDS: Ampicillin/Sulbactam Na 3 GM in Sodium Chloride 0.9% 100 ML IV SCH ×2 (03:18→08:16)
[2017-09-29] MEDS: Acetaminophen/oxyCODONE 325-5 MG Tab PO PRN (07:44)
[2017-09-29] MEDS: Potassium Chloride 10 MEQ Tab.ER PO SCH (08:16)
--- NOTE | 2017-09-29 08:43 | OR ---
DATE OF OPERATION: 09/26/2017 SURGEON: Markus Hill MD PREOPERATIVE DIAGNOSIS: 1. Acute cholecystitis. 2. Cholelithiasis. POSTOPERATIVE DIAGNOSIS: 1. Acute cholecystitis. 2. Cholelithiasis. OPERATION PERFORMED: Laparoscopy, open cholecystectomy. ESTIMATED BLOOD LOSS: 100 mL. FINDINGS: The gallbladder that was encased in adhesions in which the Calot's triangle was completely encased in inflammatory tissue and scar tissue. The gallbladder although aspirated could not hold with the graspers because of the thickness and inflammation in the gallbladder itself. The gallbladder had multiple stones, and the mucosa of the gallbladder was necrotic. DESCRIPTION OF PROCEDURE: The patient was taken to the operating room, placed in a supine position, and given antibiotics. SCDs were placed. He was given a general anesthetic and intubated. The abdomen was clipped and prepped with chlorhexidine-alcohol prep and draped off in a sterile fashion. An incision was made just below the umbilicus and using a 5 mm Optiport, the abdominal cavity was entered. Pneumoperitoneum was established, and a 5 mm 0-degree camera was inserted showing adhesions of omentum over the gallbladder in the right upper quadrant. A 10 mm trocar was placed in the epigastric position and 5 mm trocar placed in the right upper and right lateral position. The adhesions were then noted, and these were then sharply taken down over the fundus of the gallbladder using electrocautery hook and then by blunt dissection, the remaining adhesions on the gallbladder were then taken down. This demonstrated a very thickened gallbladder wall with Calot's triangle encased in adhesions and sucked up under the ralph hepatis. The gallbladder was quite rigid and was not mobile. When unable to grasp the fundus of the gallbladder because of the thickness, gallbladder was then aspirated with dark bile, but still was unable to grab the gallbladder wall. It was at this juncture I elected to open the patient. The pneumoperitoneum ports were removed, and the skin of each port closed with subdermal 4-0 Dexon suture. Subcostal incision was made and carried down by sharp dissection through the skin and fat to the anterior rectus sheath. This was incised and the muscle was then cut and the bleeders in the muscle controlled with suture ligature of 3-0 Vicryl suture. The transversus fascia was incised, abdominal cavity entered, and the gallbladder was then grasped with Ngozi and it was elected to remove the gallbladder from the fundus down. An incision was made and the gallbladder was taken off the back wall of the liver. The cystic artery was identified and suture ligated with 3-0 Vicryl suture. Getting closer down to the Calot's triangle, it was felt that it was not safe to go into the Calot's triangle, and the gallbladder was amputated just above the Lyla pouch. The stones were then removed individually. The area was irrigated, and the Lyla pouch was then closed with running 3-0 Vicryl suture. The area was palpated. I did not feel any other pathology. The Daniel-Root drain was placed in the Morison's pouch, brought out through a separate stab wound, and secured to the skin with a Prolene suture. The transversus fascia was then closed with running #1 PDS. This was left long. Another #1 PDS was used to close the anterior rectus fascia in a running fashion and met with the first suture and tied off. Subcuticular tissue was irrigated, and the dermis brought together with interrupted 3-0 Vicryl suture and the skin with anahy. Sterile dressing placed. The patient tolerated the procedure and sent to the recovery room in a stable condition. ANESTHESIA: TRUNG /[id number]
--- NOTE | 2017-09-29 09:35 | PCM.SURGPN ---
- General Info Date of Service: 09/29/17 - Patient Data Vitals - Most Recent: Last Vital Signs Temp 97.3 F 09/29/17 03:24 Pulse 56 L 09/29/17 03:24 Resp 16 09/29/17 03:24 BP 116/73 09/29/17 03:24 Pulse Ox 97 09/29/17 03:24 Weight - Most Recent: 75.795 kg I&O - Last 24 Hours: Intake & Output 09/28/17 09/29/17 09/29/17 23:59 07:59 15:59 Intake Total 1035 540 Output Total 1400 Balance 1035 -860 Med Orders - Current: Current Medications Al Hydroxide/Mg Hydroxide (Mag-Al Plus) 30 ml PO Q4H PRN PRN Reason: Heartburn Last Admin: 09/27/17 13:01 Dose: 30 ml Hydromorphone HCl (Dilaudid) 1 mg IVPUSH Q1H PRN PRN Reason: Pain Last Admin: 09/27/17 03:43 Dose: 1 mg Ampicillin Sodium/Sulbactam (Sodium 3 gm/ Sodium Chloride) 100 mls @ 200 mls/ hr IV Q6H ERA Last Admin: 09/29/17 08:16 Dose: 200 mls/hr Ketorolac Tromethamine (Toradol) 30 mg IVPUSH Q6H PRN PRN Reason: Pain Last Admin: 09/28/17 23:17 Dose: 30 mg Ondansetron HCl (Zofran) 4 mg IVPUSH Q8H PRN PRN Reason: Nausea Oxycodone/Acetaminophen (Percocet 325-5 Mg) 1 tab PO Q6H PRN PRN Reason: Pain Last Admin: 09/29/17 07:44 Dose: 1 tab Potassium Chloride (Klor-Con 10) 10 meq PO BID ERA Stop: 09/29/17 21:01 Last Admin: 09/29/17 08:16 Dose: 10 meq Sodium Chloride (Saline Flush) 10 ml FLUSH ASDIRECTED PRN PRN Reason: Keep Vein Open Discontinued Medications Bupivacaine HCl (Marcaine 0.5%) Confirm Administered Dose 30 ml .ROUTE .STK-MED ONE Stop: 09/26/17 10:02 Last Admin: 09/26/17 10:57 Dose: 8 ml Cefazolin Sodium (Ancef) Confirm Administered Dose 2 gm .ROUTE .STK-MED ONE Stop: 09/26/17 07:12 Dexamethasone (Dexamethasone) Confirm Administered Dose 8 mg .ROUTE .STK-MED ONE Stop: 09/26/17 07:12 Diphenhydramine HCl (Benadryl) 25 mg IVPUSH Q6H PRN PRN Reason: pruritis Stop: 09/26/17 16:00 Ephedrine Sulfate (Ephedrine Sulfate) 5 mg IVPUSH ASDIRECTED PRN PRN Reason: Hypotension Stop: 09/26/17 16:00 Fentanyl (Sublimaze) Confirm Administered Dose 250 mcg .ROUTE .STK-MED ONE Stop: 09/26/17 07:14 Fentanyl (Sublimaze) 50 mcg IVPUSH Q5M PRN PRN Reason: Pain Stop: 09/26/17 11:03 Fentanyl (Sublimaze) Confirm Administered Dose 100 mcg .ROUTE .STK-MED ONE Stop: 09/26/17 11:27 Hydromorphone HCl (Dilaudid) Confirm Administered Dose 1 mg .ROUTE .STK-MED ONE Stop: 09/26/17 07:12 Hydromorphone HCl (Dilaudid) Confirm Administered Dose 1 mg .ROUTE .STK-MED ONE Stop: 09/26/17 11:07 Hydromorphone HCl (Dilaudid) 1 mg IVPUSH ONETIME ONE Stop: 09/26/17 13:02 Last Admin: 09/26/17 14:57 Dose: Not Given Hydromorphone HCl (Dilaudid) Confirm Administered Dose 0.5 mg .ROUTE .STK-MED ONE Stop: 09/26/17 12:55 Last Admin: 09/26/17 13:00 Dose: 0.5 mg Hydromorphone HCl (Dilaudid) Confirm Administered Dose 0.5 mg .ROUTE .STK-MED ONE Stop: 09/26/17 13:18 Last Admin: 09/26/17 14:57 Dose: Not Given Hydromorphone HCl (Dilaudid) 0.5 mg IVPUSH ONETIME PRN PRN Reason: Pain (severe 7-10) Stop: 09/26/17 15:00 Last Admin: 09/26/17 13:30 Dose: 0.5 mg Lidocaine HCl (Xylocaine-Mpf 1%) Confirm Administered Dose 4 mls @ as directed .ROUTE .ST-MED ONE Stop: 09/26/17 07:12 Lactated Ringer's (Ringers, Lactated) Confirm Administered Dose 1,000 mls @ as directed .ROUTE .ST-MED ONE Stop: 09/26/17 07:12 Phenylephrine HCl 1 mg/ Sodium (Chloride) 10.1 mls @ 1 mls/sec IV TITRATE ERA PRN Reason: Protocol Stop: 09/26/17 16:00 Lactated Ringer's (Ringers, Lactated) 1,000 mls @ 125 mls/hr IV ASDIRECTED ERA Stop: 09/26/17 23:00 Last Admin: 09/26/17 10:25 Dose: 125 mls/hr Lactated Ringer's (Ringers, Lactated) 1,000 mls @ 125 mls/hr IV ASDIRECTED [facility] Last Admin: 09/27/17 01:16 Dose: 125 mls/hr Lactated Ringer's (Ringers, Lactated) 1,000 mls @ 70 mls/hr IV ASDIRECTED [facility] Last Admin: 09/28/17 03:03 Dose: 70 mls/hr Iopamidol (Isovue-300 (61%)) Confirm Administered Dose 50 ml .ROUTE .[facility]-MED ONE Stop: 09/26/17 10:01 Ketorolac Tromethamine (Toradol) Confirm Administered Dose 30 mg .ROUTE .STK- MED ONE Stop: 09/26/17 07:12 Lidocaine/Sodium Bicarbonate (Buffered Lidocaine 1% In Ns 8.4%) 0.25 ml IDERM ONETIME PRN PRN Reason: Prior to IV Start Stop: 09/26/17 18:00 Last Admin: 09/26/17 10:24 Dose: 0.25 ml Meperidine HCl (Demerol) 12.5 mg IVPUSH ONETIME PRN PRN Reason: shivering Stop: 09/26/17 16:00 Midazolam HCl (Versed 1 Mg/Ml) Confirm Administered Dose 2 mg .ROUTE .STK-MED ONE Stop: 09/26/17 07:13 Ondansetron HCl (Zofran) Confirm Administered Dose 4 mg .ROUTE .STK-MED ONE Stop: 09/26/17 07:12 Ondansetron HCl (Zofran) 4 mg IVPUSH ONETIME PRN PRN Reason: Nausea/Vomiting Stop: 09/26/17 16:00 Propofol (Diprivan 20 Ml) Confirm Administered Dose 200 mg .ROUTE .STK-MED ONE Stop: 09/26/17 07:13 Rocuronium [place] (Zemuron) Confirm Administered Dose 50 mg .ROUTE .STK-MED ONE Stop: 09/26/17 07:12 Sodium Chloride (Normal Saline) Confirm Administered Dose 50 ml .ROUTE .STK-MED ONE Stop: 09/26/17 10:02 Sodium Chloride (Saline Flush) 10 ml FLUSH ASDIRECTED PRN PRN Reason: Keep Vein Open Stop: 09/26/17 18:00 - Problem List Review Problem List Initiated/Reviewed/Updated: Yes - My Orders Last 24 Hours: Active Orders 24 hr Category Date Time Status Ready for Discharge [RC] PER UNIT ROUTINE Care 09/29/17 09:[address] [facility] Diet [DIET] Diet 09/28/17 Dinner Active Potassium Chloride [Klor-Con 10] Med 09/28/17 12:30 Active 10 meq PO BID Sodium Chloride 0.9% [Saline Flush] Med 09/28/17 12:50 Active 10 ml FLUSH ASDIRECTED PRN Convert IV to Saline Lock [OM.PC] Routine Oth 09/28/17 12:50 Ordered Medication Orders Al Hydroxide/Mg Hydroxide (Mag-Al Plus) 30 ml PO Q4H PRN PRN Reason: Heartburn Last Admin: 09/27/17 13:01 Dose: 30 ml Hydromorphone HCl (Dilaudid) 1 mg IVPUSH Q1H PRN PRN Reason: Pain Last Admin: 09/27/17 03:43 Dose: 1 mg Admin: 09/26/17 22:46 Dose: 1 mg Admin: 09/26/17 20:12 Dose: 1 mg Ampicillin Sodium/Sulbactam (Sodium 3 gm/ Sodium Chloride) 100 mls @ 200 mls/ hr IV Q6H ERA Last Admin: 09/29/17 08:16 Dose: 200 mls/hr Infusion: 09/29/17 03:48 Dose: 200 mls/hr Admin: 09/29/17 03:18 Dose: 200 mls/hr Infusion: 09/28/17 21:05 Dose: 200 mls/hr Admin: 09/28/17 20:35 Dose: 200 mls/hr Infusion: 09/28/17 14:19 Dose: 200 mls/hr Admin: 09/28/17 13:49 Dose: 200 mls/hr Infusion: 09/28/17 09:02 Dose: 200 mls/hr Admin: 09/28/17 08:32 Dose: 200 mls/hr Infusion: 09/28/17 02:53 Dose: 200 mls/hr Admin: 09/28/17 02:23 Dose: 200 mls/hr Infusion: 09/27/17 20:18 Dose: 200 mls/hr Admin: 09/27/17 19:48 Dose: 200 mls/hr Infusion: 09/27/17 13:52 Dose: 200 mls/hr Admin: 09/27/17 13:22 Dose: 200 mls/hr Infusion: 09/27/17 08:29 Dose: 200 mls/hr Admin: 09/27/17 07:59 Dose: 200 mls/hr Infusion: 09/27/17 02:38 Dose: 200 mls/hr Admin: 09/27/17 02:08 Dose: 200 mls/hr Infusion: 09/26/17 20:49 Dose: 200 mls/hr Admin: 09/26/17 20:19 Dose: 200 mls/hr Infusion: 09/26/17 15:03 Dose: 200 mls/hr Admin: 09/26/17 14:33 Dose: 200 mls/hr Ketorolac Tromethamine (Toradol) 30 mg IVPUSH Q6H PRN PRN Reason: Pain Last Admin: 09/28/17 23:17 Dose: 30 mg Admin: 09/28/17 13:46 Dose: 30 mg Admin: 09/28/17 02:27 Dose: 30 mg Admin: 09/27/17 18:18 Dose: 30 mg Admin: 09/27/17 10:29 Dose: 30 mg Admin: 09/27/17 04:41 Dose: 30 mg Admin: 09/26/17 22:36 Dose: 30 mg Admin: 09/26/17 15:50 Dose: 30 mg Ondansetron HCl (Zofran) 4 mg IVPUSH Q8H PRN PRN Reason: Nausea Oxycodone/Acetaminophen (Percocet 325-5 Mg) 1 tab PO Q6H PRN PRN Reason: Pain Last Admin: 09/29/17 07:44 Dose: 1 tab Admin: 09/28/17 20:35 Dose: 1 tab Admin: 09/28/17 08:32 Dose: 1 tab Admin: 09/27/17 21:38 Dose: 1 tab Admin: 09/27/17 13:18 Dose: 1 tab Potassium Chloride (Klor-Con 10) 10 meq PO BID ERA Stop: 09/29/17 21:01 Last Admin: 09/29/17 08:16 Dose: 10 meq Admin: 09/28/17 20:35 Dose: 10 meq Admin: 09/28/17 13:46 Dose: 10 meq Sodium Chloride (Saline Flush) 10 ml FLUSH ASDIRECTED PRN PRN Reason: Keep Vein Open - Plan Plan (Free Text/Narrative):: dictated discharge summary ÁNGEL
--- NOTE | 2017-09-30 00:09 | DISCH ---
ADMISSION DATE: 09/26/2017 DISCHARGE DATE: 09/29/2017 HISTORY: A 36-year-old male who after 11 days came in to our office via the emergency room with acute cholecystitis cholelithiasis. He was seen on and brought to the operating room the following day. His past medical history was good health. PHYSICAL EXAMINATION: GENERAL: At the time of admission, revealed alert cooperative male. EYES, EARS, NOSE, AND THROAT: Unremarkable. NECK: Supple. No nodes. No thyromegaly. LUNGS: Clear. HEART: Heart tones regular rate. ABDOMEN: Showed tenderness of right upper quadrant with palpable gallbladder. He denied any chills, fever, or jaundice. HOSPITAL COURSE: The patient was brought to the operating room and laparoscopy, then open cholecystectomy was performed. The reason for the open cholecystectomy that the gallbladder wall could not be held with the graspers and even in spite of aspiration of the gallbladder. Open cholecystectomy was performed with amputation of the gallbladder just slightly above Lyla's pouch with removal of the stones and oversewing the gallbladder at this juncture. It was found that a cholangiogram could not be done. It was found that the patient had a markedly thickened gallbladder and advanced disease. Postoperative course was uneventful. He remained afebrile, ambulated. Diet was advanced as tolerated, and on third day, he was eating a regular diet, up and walking around. Daniel- Root drain was draining serous fluid, small amount. At the time of his discharge, it was removed. He was kept on antibiotics. He reached maximum hospitalization, was discharged for followup in the clinic on this . DISCHARGE DIAGNOSIS: Acute cholecystitis, cholelithiasis, status post open cholecystectomy. CONDITION ON DISCHARGE: Improved. DIET: Regular. WORK: No work. DISCHARGE MEDICATIONS: Will be discharged with Percocet and Augmentin. FINAL DIAGNOSIS: ACTIVITY: FOLLOW-UP: MMALVARADO /[id number]
== END 2017-09-29 12:01 | disposition home or self-care (01) | DRG 416 ==
LOC: JD.SDS 10:03 → JD.MS 12:48
PROVIDERS: ADMIT Surgery; ATTEND Surgery
PROC: 0FT40ZZ Resection of Gallbladder, Open Approach (ICD-10-PCS; principal; 2017-09-26)
DX: K80.00 Calculus of gallbladder with acute cholecystitis without obstruction (principal); K82.8 Other specified diseases of gallbladder; E87.6 Hypokalemia; Z87.891 Personal history of nicotine dependence
CPT/HCPCS: 00790; 36415; 80053; 85025; A9270-GY; J0295; J0690; J1100; J1170; J1885; J2001; J2250; J2405; J2704; J3010; J7030; J7120; Q9967